=== PATIENT | female | born 1985 | race Caucasian/White ===

== ENCOUNTER 2016-11-06 20:07 | Inpatient (IN) | payer BC, OTHER ==
[~2016-11-06] VITALS: Ht 172.7 cm; Wt 68.0 kg
[2016-11-06] MEDS ORDERED: DICYCLOMINE HCL 20 MG TABLET PO PRN (23:15)
[2016-11-06] MEDS ORDERED: MAGNESIUM HYDROXIDE 30 ML LIQUID UDC PO PRN (23:15)
[2016-11-06] MEDS ORDERED: ACETAMINOPHEN 325 MG TABLET PO PRN (23:15)
[2016-11-06] MEDS ORDERED: MAG HYDROX/AL HYDROX/SIMETH 30 ML LIQUID UDC PO PRN (23:15)
[2016-11-06] MEDS ORDERED: LOPERAMIDE HCL 2 MG CAPSULE PO PRN ×2 (23:15)
[2016-11-06] MEDS ORDERED: BUPRENORPHINE HCL 2 MG TAB.SUBL SL PRN (23:15)
[2016-11-06] MEDS ORDERED: ONDANSETRON ODT 4 MG TAB.RAPDIS SL PRN (23:15)
[2016-11-06] MEDS ORDERED: MIRALAX 17 GM POWD.PACK PO PRN (23:15)
[2016-11-06] MEDS ORDERED: IBUPROFEN 400 MG TABLET PO PRN (23:15)
[2016-11-06 23:28] LABS: *URINE HCG, QUAL NEGATIVE (NEGATIVE)
[2016-11-06 23:46] LABS: *AMPHETAMINE, URINE POSITIVE (NEGATIVE); *BARBITURATE, URINE NEGATIVE (NEGATIVE); *CANNABINOID, URINE NEGATIVE (NEGATIVE); *COCCAINE, URINE NEGATIVE (NEGATIVE); *OPIATE, URINE POSITIVE (NEGATIVE); *PHENCYCLIDINE SCREEN,URINE NEGATIVE (NEGATIVE)
[2016-11-07 00:14] VITALS: BP 122/74
[2016-11-07 04:15] VITALS: BP 128/83
[2016-11-07 08:00] VITALS: BP 98/62
[2016-11-07] MEDS: MULTIVITAMINS,THERAPEUTIC TABLET PO SCH (09:00)
[2016-11-07] MEDS ORDERED: TUBERCULIN,PURIF.PROT.DERIV. 5 TU/0.1 ML TEST ID ONE (09:00)
[2016-11-07] MEDS: PERMETHRIN 5% CREAM 60 GM TUBE TP ONE ×2 (11:42→11:59)
[2016-11-07 12:00] VITALS: BP 106/60
[2016-11-07] MEDS: METHOCARBAMOL 750 MG TABLET PO PRN (12:07)
[2016-11-07] MEDS ORDERED: HYDROXYZINE PAMOATE 25 MG CAPSULE PO PRN (12:45)
[2016-11-07] MEDS: CLONIDINE HCL 0.1 MG TABLET PO PRN (15:42)
[2016-11-07 16:00] VITALS: BP 98/55
[2016-11-07] MEDS ORDERED: LORAZEPAM 1 MG TABLET PO ONE (16:15)
[2016-11-07] MEDS ORDERED: LORAZEPAM 1 MG TABLET PO PRN ×2 (17:00)
[2016-11-07 20:09] VITALS: BP 94/50
[2016-11-07] MEDS ORDERED: LORAZEPAM 1 MG TABLET PO SCH (21:00)
[2016-11-07] MEDS: GABAPENTIN 300 MG CAPSULE PO SCH (21:42)
[2016-11-08 00:35] VITALS: BP 100/62
[2016-11-08 04:12] VITALS: BP 105/66
[2016-11-08] MEDS: METHOCARBAMOL 750 MG TABLET PO PRN ×2 (07:25→20:41)
[2016-11-08 08:00] VITALS: BP 100/60
[2016-11-08] MEDS: GABAPENTIN 300 MG CAPSULE PO SCH ×3 (08:05→20:41)
[2016-11-08] MEDS: BUPRENORPHINE HCL 2 MG TAB.SUBL SL SCH ×3 (08:05→20:41)
[2016-11-08] MEDS: LORAZEPAM 1 MG TABLET PO SCH ×3 (08:05→20:41)
[2016-11-08] MEDS: MULTIVITAMINS,THERAPEUTIC TABLET PO SCH (08:05)
[2016-11-08] MEDS ORDERED: BUPRENORPHINE HCL 2 MG TAB.SUBL SL ONE ×2 (08:12→13:03)
[2016-11-08] MEDS ORDERED: TUBERCULIN,PURIF.PROT.DERIV. 5 TU/0.1 ML TEST ID ONE (09:00)
[2016-11-08] MEDS: CLONIDINE HCL 0.1 MG TABLET PO PRN (09:00)
[2016-11-08] MEDS ORDERED: 4 DAY TAPER BUPRENORPHINE -SERENITY PROTOCOL SL PRN (09:00)
[2016-11-08 12:39] VITALS: BP 102/60
[2016-11-08 16:00] VITALS: BP 96/60
[2016-11-08 20:00] VITALS: BP 99/69
[2016-11-09] VITALS: BP 94/55
[2016-11-09 08:11] VITALS: BP 106/60
[2016-11-09] MEDS: GABAPENTIN 300 MG CAPSULE PO SCH ×3 (08:28→22:15)
[2016-11-09] MEDS: LORAZEPAM 1 MG TABLET PO SCH ×4 (08:28→22:15)
[2016-11-09] MEDS: MULTIVITAMINS,THERAPEUTIC TABLET PO SCH (08:28)
[2016-11-09] MEDS ORDERED: BUPRENORPHINE HCL 2 MG TAB.SUBL SL SCH (09:00)
[2016-11-09 12:55] VITALS: BP 107/76
[2016-11-09] MEDS: BUPRENORPHINE HCL 2 MG TAB.SUBL SL SCH ×2 (15:08→22:16)
[2016-11-09 17:23] VITALS: BP 100/60
[2016-11-09 20:00] VITALS: BP 117/76
[2016-11-10 04:00] VITALS: BP 102/62
[2016-11-10 08:25] VITALS: BP 107/64
[2016-11-10] MEDS: BUPRENORPHINE HCL 2 MG TAB.SUBL SL SCH ×3 (08:27→21:05)
[2016-11-10] MEDS: GABAPENTIN 300 MG CAPSULE PO SCH ×3 (08:27→21:05)
[2016-11-10] MEDS: MULTIVITAMINS,THERAPEUTIC TABLET PO SCH (08:27)
[2016-11-10] MEDS: LORAZEPAM 1 MG TABLET PO SCH ×3 (08:27→21:05)
[2016-11-10 13:51] VITALS: BP 90/62
[2016-11-10 17:40] VITALS: BP 110/76
[2016-11-10 20:00] VITALS: BP 101/66
[2016-11-11 08:00] VITALS: BP 104/64
[2016-11-11] MEDS: MULTIVITAMINS,THERAPEUTIC TABLET PO SCH (08:34)
[2016-11-11] MEDS: GABAPENTIN 300 MG CAPSULE PO SCH ×3 (08:34→21:10)
[2016-11-11] MEDS: LORAZEPAM 1 MG TABLET PO SCH ×2 (08:35→21:10)
[2016-11-11] MEDS ORDERED: BUPRENORPHINE HCL 2 MG TAB.SUBL SL SCH (09:00)
[2016-11-11 12:00] VITALS: BP 106/66
[2016-11-11 16:00] VITALS: BP 105/67
[2016-11-11 20:00] VITALS: BP 95/52
[2016-11-12 08:06] VITALS: BP 94/67
[2016-11-12] MEDS: GABAPENTIN 300 MG CAPSULE PO SCH ×3 (09:00→20:48)
[2016-11-12] MEDS: METHOCARBAMOL 750 MG TABLET PO PRN (09:15)
[2016-11-12] MEDS: MULTIVITAMINS,THERAPEUTIC TABLET PO SCH (09:15)
[2016-11-12] MEDS ORDERED: CLON0.1T14 PO (11:27)
[2016-11-12] MEDS ORDERED: GABA-534 PO (11:27)
[2016-11-12] MEDS ORDERED: DICY20TA28 PO (11:27)
[2016-11-12] MEDS ORDERED: METH-406 PO (11:27)
[2016-11-12] MEDS ORDERED: SCOPOLAMINE HYDROBROMIDE 1.5 MG PATCH TD SCH (12:30)
[2016-11-12 12:51] VITALS: BP 113/80
[2016-11-12] MEDS: ONDANSETRON ODT 4 MG TAB.RAPDIS SL PRN ×2 (12:56→20:49)
[2016-11-12 16:00] VITALS: BP 106/63
[2016-11-12 20:00] VITALS: BP 111/72
[2016-11-12] MEDS: CLONIDINE HCL 0.1 MG TABLET PO PRN (20:49)
[2016-11-12 21:17] LABS: *AMPHETAMINE, URINE NEGATIVE (NEGATIVE); *BARBITURATE, URINE NEGATIVE (NEGATIVE); *CANNABINOID, URINE NEGATIVE (NEGATIVE); *COCCAINE, URINE NEGATIVE (NEGATIVE); *OPIATE, URINE NEGATIVE (NEGATIVE); *PHENCYCLIDINE SCREEN,URINE NEGATIVE (NEGATIVE)
[2016-11-13] VITALS: BP_SYST 109; BP_SYST 92; BP_DIAS 56; BP_DIAS 66
[2016-11-13 04:00] VITALS: BP 93/57
[2016-11-13 08:00] VITALS: BP 90/56
[2016-11-13] MEDS: MULTIVITAMINS,THERAPEUTIC TABLET PO SCH (08:46)
[2016-11-13] MEDS: GABAPENTIN 300 MG CAPSULE PO SCH (08:46)
[2016-11-13] MEDS ORDERED: SCOPOLAMINE HYDROBROMIDE 1.5 MG PATCH TD SCH (09:00)
== END 2016-11-13 10:20 | disposition home or self-care (01) | DRG 895 ==
LOC: SRC 20:40
PROVIDERS: ADMIT Internal Medicine; ATTEND Internal Medicine
PROC: HZ2ZZZZ Detoxification Services for Substance Abuse Treatment (ICD-10-PCS; principal; 2016-11-06)
PROC: HZ31ZZZ Individual Counseling for Substance Abuse Treatment, Behavioral (ICD-10-PCS; 2016-11-09)
PROC: HZ41ZZZ Group Counseling for Substance Abuse Treatment, Behavioral (ICD-10-PCS; 2016-11-12)
DX: F11.23 Opioid dependence with withdrawal (principal); F14.20 Cocaine dependence, uncomplicated; F15.23 Other stimulant dependence with withdrawal; R21 Rash and other nonspecific skin eruption; Z88.8 Allergy status to other drugs, medicaments and biological substances; Z81.8 Family history of other mental and behavioral disorders; F90.9 Attention-deficit hyperactivity disorder, unspecified type; Z59.0 Homelessness; R46.0 Very low level of personal hygiene; F17.210 Nicotine dependence, cigarettes, uncomplicated
CPT/HCPCS: 70030-TC; 80307; 80324; 80361; 84703; 86580; A4663; Q0162

== ENCOUNTER 2016-11-22 11:56 | Inpatient (IN) | payer BC, OTHER ==
[~2016-11-22] VITALS: Ht 172.7 cm; Wt 71.7 kg
[~2016-11-22 11:56] MED LIST: CLON0.1T14 PO; DICY20TA28 PO; GABA-534 PO; METH-406 PO
--- NOTE | 2016-11-22 12:20 | NUR ---
PRE-ASSESSMENT: Pre-Assessment done at intake office, client is incoherent, unable to keep eyes open, dry oral mucosa and lips, pale complexion, she appears disheveled. Vitals T 97, RR 14, BP 123/79, HR 96, spO2 @ 95% on RA, unable to rate pain, but she does not appear in discomfort. she smiles to herself, continually is scratching at her face and feet. One of two of her male friends stated, "She was with us last night and around 0130 she left and called us around 1000 saying that she overdose, we went to pick her up and she was in a laundry mat on the floor and around her there was several needles, she doesn't know how much she used, she said a juliane fix it for her." She is sitting on a chair and unsteady when transfer to . Dairy Machine Operator Farmworker called Dr. Stevenson and gave report, he stated "Send her to ER for observation." Client is transported via w/c to ER.
--- NOTE | 2016-11-22 12:35 | NUR ---
Endorsed client to ER nurse, Client is in W/C with eyes closed, her two friends are by her side.
--- NOTE | 2016-11-22 13:00 | NUR ---
Rcvd endorsement from ER nurse, Nurse reports client is a/o x 4. Transported client back to [facility] intake. Client states name, and place. Client agrees to treatment care of vitals every 4 hrs, urine drug screen and blood lab work. Friends took her home medication per client's request. Bentyl 20mg PRN Q6H Robaxin 750mg PRN Q8H Vistaril 50mg PRN Q6H Gabapentin 600mg TID Clonidine 0.1mg PRN Q6H Client has not been taking this medications since she was discharged from [facility] (Client was admitted to [facility] from 11/07-11/13/16)
--- NOTE | 2016-11-22 13:15 | NUR ---
Admissions Note 31 year old female admitted to [facility] for withdrawal from heroin and methamphetamine. Client reports PMH of ADHD, Chronic tobacco use. Client denies any hx of withdrawal-induced seizure. Client is oriented to unit, educated about protocols and how to work TV and call light in her room. Weight:158 pounds. Height: 5'8" COWS: 2 Client is ambulatory, she presents with anxious mood, flat affect, clammy skin, well healed small track mackay on bilateral arms. scattered dry scabs on bilateral lower extremities, Calluses on bilateral plantar foot. Encourage client to stop picking at the scabs and her face. Bilateral lung clear on auscultation, abdomen soft, non-tender, no edema noted. Clients voice is soft, she avoids eye contact. Client has allergy to Naloxone, diphenhydramine, hydroxyzine, quetiapine, trazodone. Vegan diet ordered. Full code status ordered. LBM was 11/22/16, small/brown. Client denies a PCP, she has a Psychiatrist Dr. White. She declines PNA vaccine. She gives verbal consent for HIV. Client states that she is living in an apartment and has a roommate, she is unemployed at this time. Client substance use is as follow, She first started using heroin about 6 years ago, she used for one day unknown amount via IV farm equipment mechanic prior to admission. Methamphetamine unknown amount via IV farm equipment mechanic prior to admission. She reports hx of prior treatment but can not remember names, last being [facility] form November 07-November 13, 2016. After discharge she went home. Dr Stevenson notified of admission. Urine was collected upon admission. All safety measures instituted. [place] precaution. Call light within reach. Will continue to monitor.
[2016-11-22] MEDS ORDERED: LORAZEPAM 1 MG TABLET PO PRN (13:30)
[2016-11-22] MEDS ORDERED: MIRALAX 17 GM POWD.PACK PO PRN (13:30)
[2016-11-22] MEDS ORDERED: MAGNESIUM HYDROXIDE 30 ML LIQUID UDC PO PRN (13:30)
[2016-11-22] MEDS ORDERED: BUPRENORPHINE HCL 2 MG TAB.SUBL SL PRN (13:30)
[2016-11-22] MEDS ORDERED: LOPERAMIDE HCL 2 MG CAPSULE PO PRN ×2 (13:30)
[2016-11-22] MEDS ORDERED: ONDANSETRON ODT 4 MG TAB.RAPDIS SL PRN (13:30)
[2016-11-22] MEDS ORDERED: IBUPROFEN 600 MG TABLET PO PRN (13:30)
[2016-11-22] MEDS ORDERED: ONDANSETRON 4 MG/2 ML VIAL IM PRN (13:30)
[2016-11-22] MEDS ORDERED: DICYCLOMINE HCL 20 MG TABLET PO PRN (13:30)
[2016-11-22] MEDS ORDERED: MAG HYDROX/AL HYDROX/SIMETH 30 ML LIQUID UDC PO PRN (13:30)
[2016-11-22] MEDS ORDERED: ACETAMINOPHEN 325 MG TABLET PO PRN (13:30)
[2016-11-22 14:30] LABS: *URINE HCG, QUAL NEGATIVE (NEGATIVE)
[2016-11-22 14:50] LABS: *AMPHETAMINE, URINE POSITIVE (NEGATIVE); *BARBITURATE, URINE NEGATIVE (NEGATIVE); *CANNABINOID, URINE NEGATIVE (NEGATIVE); *COCCAINE, URINE NEGATIVE (NEGATIVE); *OPIATE, URINE POSITIVE (NEGATIVE); *PHENCYCLIDINE SCREEN,URINE NEGATIVE (NEGATIVE)
[2016-11-22] MEDS ORDERED: GABAPENTIN 300 MG CAPSULE PO SCH (15:00)
--- NOTE | 2016-11-22 15:32 | NUR ---
PRN Tylenol 560mg PO administered for headache 6/10 at frontal area, encourage client to increase fluid intake. call light within reach. Client is crying in her room after her phone ramu with her sponsor, she does not want to talk about it.
[2016-11-22] MEDS ORDERED: ASPIRIN/ACETAMINOPHEN/CAFFEINE TABLET PO PRN (15:45)
[2016-11-22] MEDS ORDERED: LORAZEPAM 2 MG/1 ML VIAL IM PRN (15:45)
--- NOTE | 2016-11-22 16:32 | NUR ---
Reassessment PRN Tylenol 650mg effective client sound asleep, easy to arouse, RR 16. Call light within reach.
[2016-11-22 16:55] VITALS: BP 105/55
--- NOTE | 2016-11-22 19:09 | NUR ---
END OF SHIFT & PRN EXCEDRIN Rcvd endorsement from ongoing nurse, client is a 31 y/o admitted for opioid withdrawal. Client has Subutex PRN Q4H for COWS >/= 12. PRN Tylenol for PAK, noted effective. Excedrin for PAK 10/10 frontal area, does not radiate, incoming nurse to reassess. Last COWS 2 @ 1700. Client is in bed, a/o x4. She presents with depressed mood, flat affect. Client was not compliant with group therapy, but she was compliant with medication. Adequate intake 1800mL, void x 3, stool x 1. Client is fully ambulatory. Call light within reach. The patient reports a history of withdrawal-induced seizures. Seizure precautions, side rails x 2 up/padded. Safety measures rendered and all needs met.
[2016-11-22 20:00] VITALS: BP 108/59
--- NOTE | 2016-11-22 20:00 | NUR ---
Start of Shift Patient is a 31-year old, female, admitted for Opioid Dependence. Pt is alleric to Vistaril, Benadryl, Naloxone, Seroquel and Trazodone. Pt with history of ADHD and Migraines. Pt on PRN Subutex at this time as ordered, based on COWS scores. Pt is AAOx4, no anxiety noted and with no SOB noted. Pt is ambulatory with steady gait and no open skin noted. Fall, universal and safety prec in place. Call light within reach. Latest COWS=4. Will continue to monitor.
--- NOTE | 2016-11-22 20:15 | NUR ---
RN note reassess Pt verbalized headache pain level decreased to 2-3/10. Excedrin effective.
[2016-11-22] MEDS: GABAPENTIN 300 MG CAPSULE PO SCH (21:10)
[2016-11-22] MEDS: METHOCARBAMOL 750 MG TABLET PO PRN (21:11)
[2016-11-22] MEDS: CLONIDINE HCL 0.1 MG TABLET PO PRN (21:11)
--- NOTE | 2016-11-22 21:13 | NUR ---
RN note PRN Clonidine, Robaxin and Zofran Pt c/o increasing anxiety and restlessness, administered Clonidine 0.1 mg PO. C/o generalized muscle pain=6/10. Administered Robaxin 750 mg PO. C/o nausea, no vomiting. Administered Zofran 4 mg ODT. Will reassess.
--- NOTE | 2016-11-22 22:13 | NUR ---
RN note reassess Pt noted to be calm, no restlessness noted. IS=435/62, Pulse=78. No SOB noted. Generalized pain level=3/10 and no nausea per pt.
[2016-11-23] VITALS: BP 98/52
[2016-11-23 04:00] VITALS: BP 102/56
--- NOTE | 2016-11-23 07:01 | NUR ---
End of Shift Patient is a 31-year old, female, admitted for Opioid Dependence. Pt is alleric to Vistaril, Benadryl, Naloxone, Seroquel and Trazodone. Pt with history of ADHD and Migraines. Pt on PRN Subutex at this time as ordered, based on COWS scores. Pt is AAOx4, no anxiety noted and with no SOB noted. Pt is ambulatory with steady gait and no open skin noted. Fall, universal and safety prec in place. Call light within reach. Latest COWS=4, slept for 10 hours. Endorsed to AM shift nurse for continuity of care.
--- NOTE | 2016-11-23 07:05 | NUR ---
start of shift note:received pt from book editor nurse, pt is in stable condition at this time, no s/s of pain or discomfort at this time. pt is admitted to [facility] for opiate/meth relapse. pt at this time remains on PRN's, last cows 4 and pt slept for 10 hours. will continue to monitor pt for any changes and monitor pt for any s/s of withdrawal
[2016-11-23] MEDS ORDERED: TUBERCULIN,PURIF.PROT.DERIV. 5 TU/0.1 ML TEST ID ONE (09:00)
[2016-11-23] MEDS: MULTIVITAMINS,THERAPEUTIC TABLET PO SCH (09:00)
[2016-11-23] MEDS: GABAPENTIN 300 MG CAPSULE PO SCH ×2 (09:00→14:39)
[2016-11-23 09:45] VITALS: BP 98/61
--- NOTE | 2016-11-23 09:58 | NUR ---
Therapist prompted client about group times. Client reported she just wants to sleep.
[2016-11-23 12:36] VITALS: BP 90/58
[2016-11-23] MEDS ORDERED: DICY20TA28 PO (14:03)
[2016-11-23] MEDS ORDERED: GABA-534 PO (14:03)
[2016-11-23] MEDS ORDERED: IBUP-1955 PO (14:03)
[2016-11-23] MEDS ORDERED: METH-406 PO (14:03)
[2016-11-23 17:13] VITALS: BP 98/61
[2016-11-23] MEDS: CLONIDINE HCL 0.1 MG TABLET PO PRN (17:55)
[2016-11-23] MEDS: METHOCARBAMOL 750 MG TABLET PO PRN (17:55)
--- NOTE | 2016-11-23 18:01 | NUR ---
PRN ADMINISTRATION: PT VERBALIZED SHE WAS HAVING BODY ACHES AND SWEATS. PT STATED SHE WAS NOT FEELING WELL. WILL RE-ASSESS EFFECTIVENESS OF MEDICATION
--- NOTE | 2016-11-23 18:38 | NUR ---
PRN RE-ASSESSMENT: PT IS IN BED LYING DOWN COMFORTABLY, MEDICATION EFFECTIVE, PT VERBALIZED MEDICATION WITH SLIGHT HELP. PT APPEARS TO BE AGITATED AT THIS TIME.
--- NOTE | 2016-11-23 18:41 | NUR ---
END OF SHIFT NOTE: PT'S V/S WNL AT THIS TIME. PT VERBALIZES SHE IS WITHDRAWING, BUT ALSO VERBALIZES SHE JUST "USED" FOR ONE DAY. PT IS NON-COMPLAINT WITH MEDICATIONS AND IS AGITATED. CHEST X-RAY IS ORDERED FOR POSSIBLE DISCHARGE TOMORROW. PT IS ADMITTED FOR OPIATE/METH WITHDRAWAL/DEPENDENCE. PT'S INSIGHT IS VERY POOR. PT'S LAST COWS IS 3. WILL ENDORSE PT TO BILLING COLLECTIONS SPECIALIST NURSE.
--- NOTE | 2016-11-23 19:06 | NUR ---
Start of shift note Received report from day shift nurse. Pt is a 31 yo female, A+Ox4, presenting to [facility] for Opiate/Methamphetamine dependence. Pt has Allergies to Benadryl, Trazodone, Vistaril, Seroquel and Naloxone, is on Full code status, and on Regular diet. Pt is on Fall precaution. Pt has HX of ADHD and Migraines. Pt is on PRN medications and is due for discharge tomorrow. No s/s of distress noted at this time. Respirations even and unlabored. Will continue to monitor.
--- NOTE | 2016-11-23 19:37 | NUR ---
RN note Seroquel Allergy Pt verbalized that she was not truthful regarding her allergy. She stated that she is not allergic to Seroquel and she only said it previously because she did not like it. Per patient, she is NOT allergic to Seroquel.
[2016-11-23 20:10] VITALS: BP 93/62
--- NOTE | 2016-11-23 23:10 | NUR ---
RN note Seroquel Pt requests Seroquel for sleep. Called Dr. Delgado and ordered Seroquel 50 mg PO one-time order. To be carried out.
[2016-11-23] MEDS ORDERED: QUETIAPINE FUMARATE 25 MG TABLET PO SCH (23:15)
--- NOTE | 2016-11-23 23:41 | NUR ---
RN note Seroquel Administered Seroquel 50 mg PO one-time as ordered for sleeplessness.
[2016-11-24] MEDS: GABAPENTIN 300 MG CAPSULE PO SCH ×2 (00:02→08:46)
[2016-11-24 00:45] VITALS: BP 95/58
[2016-11-24 04:17] VITALS: BP 92/57
--- NOTE | 2016-11-24 06:49 | NUR ---
End of shift note Pt is a 31 yo female, A+Ox4, presenting to [facility] for Opiate/Methamphetamine dependence. Pt has Allergies to Benadryl, Trazodone, Vistaril, Seroquel and Naloxone, is on Full code status, and on Regular diet. Pt is on Fall precaution. Pt has HX of ADHD and Migraines. Pt is on PRN medications and is due for possible discharge today. Pt was given one time dose of Seroquel @2310. Pt slept for a total of 9 HRS. Last COWS: 1 @0400. No s/s of distress noted at this time. Respirations even and unlabored. Will endorse to day shift nurse.
--- NOTE | 2016-11-24 07:10 | NUR ---
Start of shift note SBAR report rcv'd. Pt was admitted for observation of opiate withdrawal. Pt has a PMHx of ADHD and migraines. Pt is on PRN subutex for withdrawal s/s. Pt has no complaints at this time. Pt is a full code, on a regular diet and reports an allergy to: benadryl, vistaril, naloxone, and trazodone. Pt is currently resting in bed. All needs addressed at this time. Will continue to monitor pt. Bed is locked in a low position, call light within reach.
[2016-11-24 08:00] VITALS: BP 110/67
[2016-11-24] MEDS: MULTIVITAMINS,THERAPEUTIC TABLET PO SCH (08:46)
--- NOTE | 2016-11-24 09:18 | NUR ---
Discharge note Pt was admitted for opiate dependence. Pt has a recent COWS of 2, VS are WNL. LBM 11/22/16. Pt denies SI/HI. Pt states that she feels ready for discharge, pt verbalized her understanding of the discharge instructions. Pt prescriptions, discharge instructions, and all belongings returned to pt. Pt ID band removed, pt ambulated off of unit, left facility via private transport for home.
== END 2016-11-24 09:18 | disposition home or self-care (01) | DRG 895 ==
LOC: SRC 11:56 → UNDOADMIN 11:56 → SRC 13:09
PROVIDERS: ADMIT Internal Medicine; ATTEND Internal Medicine
PROC: HZ2ZZZZ Detoxification Services for Substance Abuse Treatment (ICD-10-PCS; principal; 2016-11-22)
PROC: HZ31ZZZ Individual Counseling for Substance Abuse Treatment, Behavioral (ICD-10-PCS; 2016-11-23)
DX: F11.23 Opioid dependence with withdrawal (principal); F13.20 Sedative, hypnotic or anxiolytic dependence, uncomplicated; F15.23 Other stimulant dependence with withdrawal; G43.909 Migraine, unspecified, not intractable, without status migrainosus; Z81.8 Family history of other mental and behavioral disorders; Z88.8 Allergy status to other drugs, medicaments and biological substances; F90.9 Attention-deficit hyperactivity disorder, unspecified type; F17.210 Nicotine dependence, cigarettes, uncomplicated; F14.10 Cocaine abuse, uncomplicated; Z59.1 Inadequate housing; R26.81 Unsteadiness on feet
CPT/HCPCS: 71010; 80307; 80324; 80361; 84703; Q0162

== ENCOUNTER 2016-11-22 12:30 | Emergency (ER) | payer BC, OTHER ==
[~2016-11-22] VITALS: Ht 172.7 cm; Wt 72.6 kg
--- NOTE | 2016-11-22 12:47 | NUR ---
JODIE ALCANTARA at the bedsidee for eval and exam.
--- NOTE | 2016-11-22 12:53 | NUR ---
Pt is medically cleared by dr Nolasco.
--- NOTE | 2016-11-22 12:58 | NUR ---
Call [facility] for tx and admit.
--- NOTE | 2016-11-22 12:59 | NUR ---
JODIE ALCANTARA spoke to DR Stevenson(serangelique ALCANTARA).
--- NOTE | 2016-11-22 13:06 | NUR ---
Patient discharged in stable conditon. Written and verbal after care instructions given. Patient verbalizes understanding of instructions. pt left ER accompained by Daisy Neri W/ darnell beckwith.
[2016-11-22 13:09] VITALS: BP 125/73
[2016-11-23] MEDS ORDERED: IBUP-1955 PO (14:03)
[2016-11-23] MEDS ORDERED: DICY20TA28 PO (14:03)
[2016-11-23] MEDS ORDERED: METH-406 PO (14:03)
[2016-11-23] MEDS ORDERED: GABA-534 PO (14:03)
== END 2016-11-22 13:10 | disposition home or self-care (01) ==
LOC: ER 12:30
DX: F19.10 Other psychoactive substance abuse, uncomplicated (principal); F11.10 Opioid abuse, uncomplicated; Z88.8 Allergy status to other drugs, medicaments and biological substances
CPT/HCPCS: A4663

== ENCOUNTER 2017-04-10 12:50 | Emergency (ER) | payer BC, OTHER ==
[~2017-04-10] VITALS: Ht 172.7 cm; Wt 63.5 kg
[~2017-04-10 12:50] MED LIST changes: +IBUP-1955 PO
[2017-04-10] MEDS ORDERED: SULF1TAB48 PO (13:18)
[2017-04-10] MEDS ORDERED: NEOMY/BACITRA/POLYMYXIN B OINT UD PACKET TP ONE ×2 (13:30→13:53)
--- NOTE | 2017-04-10 13:35 | NUR ---
PT WAS EVALUATED BY DR MARKS. PT WAS D/C TO HOME. D/C INSTRUCTIONS GIVEN TO THE PT.
[2017-04-10 13:36] VITALS: BP 136/77
== END 2017-04-10 13:38 | disposition home or self-care (01) ==
LOC: ER 12:50
DX: L03.116 Cellulitis of left lower limb (principal); Z59.0 Homelessness; Z88.1 Allergy status to other antibiotic agents; Z88.6 Allergy status to analgesic agent
CPT/HCPCS: 99283; A4663